=== PATIENT | female | born 1950 | race Caucasian/White ===

== ENCOUNTER → 2017-08-08 | Outpatient (CLI) | payer OTHER ==
[~2017-08-08] MED LIST: ACET-1138 PO; ASPEC81 PO; ATOR-24 PO; CLB200 PO; FURO-85 PO; LISI-725 PO; METO1TAB71 PO; MULT-506 PO; RXC5 PO; SNK PO
[2017-08-08 11:47] LABS: HEMATOCRIT 43.8 % (37-47); MEAN CELL VOLUME 87.6 fL (80-100); MEAN CORPUSCULAR HGB CONC 33.1 g/dl (32-36); MEAN PLATELET VOLUME 10.5 fL (7.4-10.4); PLATELET COUNT 217 K/uL (130-400)
[2017-08-08 12:00] LABS: ALT/SGPT 26 U/L (12-78); AST/SGOT 23 U/L (15-37); BLOOD UREA NITROGEN 17 mg/dl (7-18); BUN/CREATININE RATIO 19.2 (10-20); CALCIUM 9.4 mg/dl (8.5-10.1); CARBON DIOXIDE 27 mmol/L (21-32); CHLORIDE 106 mmol/L (98-107); CREATININE 0.86 mg/dl (0.60-1.20); GLUCOSE 130 mg/dl (70-99); POTASSIUM 4.1 mmol/L (3.5-5.1); SODIUM 139 mmol/L (136-145)
== END | disposition home or self-care (01) ==
LOC: C.LABPBG 08:39
PROVIDERS: ATTEND Internal Medicine Cardiovascular Disease
DX: I50.22 Chronic systolic (congestive) heart failure (principal); I34.0 Nonrheumatic mitral (valve) insufficiency; I47.2 Ventricular tachycardia; I42.0 Dilated cardiomyopathy; E78.00 Pure hypercholesterolemia, unspecified; I86.8 Varicose veins of other specified sites

== ENCOUNTER → 2018-03-09 | Outpatient (CLI) | payer OTHER ==
[~2018-03-09] MED LIST changes: -ASPEC81 PO; +ASPI-320 PO; -METO1TAB71 PO; +METO200T32 PO
[2018-03-09 13:04] LABS: HEMATOCRIT 43.3 % (37-47); HEMOGLOBIN 14.8 g/dL (12.0-16.0); MEAN CELL VOLUME 85.4 fL (80-100); MEAN CORPUSCULAR HEMOGLOBIN 29.2 pg (25-34); MEAN CORPUSCULAR HGB CONC 34.2 g/dl (32-36); MEAN PLATELET VOLUME 10.2 fL (7.4-10.4); PLATELET COUNT 197 K/uL (130-400); RED CELL DISTRIBUTION WIDTH CV 13.9 % (11.5-14.5); RED CELL DISTRIBUTION WIDTH SD 43.1 fL (36.4-46.3); WHITE BLOOD COUNT 5.79 K/uL (4.8-10.8)
[2018-03-09 15:41] LABS: ALT/SGPT 59 U/L (12-78); AST/SGOT 71 U/L (15-37); BLOOD UREA NITROGEN 20 mg/dl (7-18); CALCIUM 8.7 mg/dl (8.5-10.1); CARBON DIOXIDE 24 mmol/L (21-32); CHOLESTEROL 111 mg/dl (0-200); CREATININE 0.99 mg/dl (0.60-1.20); GLUCOSE 117 mg/dl (70-99); POTASSIUM 4.1 mmol/L (3.5-5.1); SODIUM 137 mmol/L (136-145)
[2018-03-09 15:45] LABS: LDL CHOLESTEROL CALCULATED 47 mg/dl
== END | disposition home or self-care (01) ==
LOC: C.LABPBG 10:51
PROVIDERS: ATTEND Internal Medicine Cardiovascular Disease
DX: I50.22 Chronic systolic (congestive) heart failure (principal); I34.0 Nonrheumatic mitral (valve) insufficiency; I42.0 Dilated cardiomyopathy; E78.00 Pure hypercholesterolemia, unspecified; R60.9 Edema, unspecified; I83.90 Asymptomatic varicose veins of unspecified lower extremity; R00.2 Palpitations

== ENCOUNTER 2022-04-21 19:56 | Observation (INO) ==
[2022-04-21] MEDS ORDERED: ACETAMINOPHEN 500 MG TAB PO STA (20:07)
--- NOTE | 2022-04-21 20:07 | Emergency Department Note ---
Impression & Plan Acute knee pain ADMIT ED Provider Note HPI: The patient is a 71-year-old female who presents emergency department with a chief complaint of right knee pain. Patient states that the pain developed acutely when she was walking in her basement shortly prior to arrival. Patient states that she did mow the lawn today and for the past day has been having some pain in her right calf area. Patient denies any injury although she states she "might have" twisted her knee awkwardly. On arrival here to the ED she has limited range of motion at the right knee secondary to pain, no significant swelling, she does have a palpable dorsalis pedis pulse on arrival with range of motion and sensation intact distally in the right foot. Patient states that the pain was acute in nature, her daughter was at the house shortly after the injury and called EMS for the patient to be transported to the ED. There is no asymmetrical swelling of the right lower extremity in comparison to the left. Patient is otherwise in no acute distress on arrival. ROS: -MSK: Right knee pain *10 point review systems was conducted and is otherwise negative unless stated above *Outpatient medications and allergy history reviewed PE: General: Alert, NAD HEENT: Normocephalic, atraumatic Eyes: Extraocular eye movement is intact, no scleral erythema Pulmonary: Clear to auscultation bilaterally, no wheezing Cardio: Regular rate and rhythm GI: Abdomen is soft, nontender : No suprapubic tenderness MSK: No evidence of trauma or malformation of the extremities, no edema, limited range of motion at the right knee secondary to pain, palpable dorsalis pedis pulses appreciated in the right lower extremity Skin: No evidence of rash Neuro: Alert, no focal deficits Psychiatric: Cooperative Medical Decision Making: Patient presented to the emergency department after she experienced acute pain in her right knee when she was ambulating in her basement earlier today, she denies any blunt trauma, denies any fall to the ground, patient believes she may have twisted her knee awkwardly causing the acute pain. She also mention that she had some pain in her right calf area throughout the day prior to experiencing this injury to her right knee. On arrival here to the ED the patient does not have any discoloration of the right lower extremity, no asymmetrical swelling, she does complain of acute pain in the right knee area. X-ray imaging was obtained that does not show any obvious fracture or dislocation per my interpretation, ultrasound imaging of the right lower extremity does not show any evidence of DVT. On my reassessment the patient states she is still having some pain despite receiving Tylenol here in the ED, she states it is mostly when she attempts to move the knee or if she ambulates, she is unable to bear any weight on the leg, she states that she lives with her who is unable to help her with anything at home in regards to her ambulation and activities of daily living as he recently had back surgery. Family at the bedside is concerned that the patient should not be discharged home because of this. Screening lab work was obtained that shows a slightly elevated creatinine of 1.34, patient has had some elevations in this range previously but her baseline seems to be around 1.0, she was ordered IV fluids for this. Urinalysis does not show any obvious evidence of infection as it does appear contaminated, patient does not have any dysuria, will send for culture. Given the patient's ambulatory dysfunction and acute right knee pain, I do of concern for soft tissue injury, she is not safe for discharge home according to family and therefore [facility] hospitalist service was consulted for admission for ambulatory dysfunction and acute right knee pain/injury. Diagnosis: 1. Right knee pain, acute 2. Ambulatory dysfunction 3. 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) Chronic bronchitis Chronic diastolic congestive heart failure Hypercholesterolemia Hypertension Hypothyroidism Left bundle-branch block Mitral regurgitation Osteopenia Paroxysmal ventricular tachycardia (11/2012) Type 2 diabetes mellitus Surgical History History of cardiac cath History of tubal ligation Status post left knee replacement (08/06/16) Family History Mother Cardiac disorder Cerebral aneurysm Hypertension Father Cardiac disorder Hypertension Brother Cardiac disorder Cerebral aneurysm Diabetes Hypertension Grandmother (Maternal) Type 2 diabetes mellitus Denies family history of Ovarian cancer Prostate cancer Myocardial infarction Breast cancer Colorectal cancer Social History Smoking Status: Never smoker Second Hand Exposure: No; Hx Alcohol Use: No Hx Substance Use: No Preferred Language: Nepali Communication Ability: Effective Visual Impairment: No Limitations Hearing Ability: Normal Silk Screen Painter Required: No Beliefs That Will Affect Care: None marital status: Current Living Situation: Spouse current occupational status: retired 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 [employer] Feels Safe at Home: Yes Childhood Exposure to Second-Hand Smoke: Yes caffeine: No Dental Care, Regularly: No Physical Activity Frequency: Daily Physical Activity Frequency Comment: walking Seatbelt Use: always Sunscreen Use: Yes Allergies Allergies Allergy/AdvReac Type Severity Reaction Status Date / Time No Known Allergies Allergy Unverified 04/21/22 20:04 Home Meds Home Medications Medication Instructions Recorded Confirmed calcium carbonate 600 mg-vitamin 1 tab PO BID 05/11/19 04/21/22 D3 10 mcg (400 unit) tablet (Calcium 600 + D(3)) aspirin 81 mg tablet,delayed 81 mg PO DAILY 04/21/22 04/21/22 release Previous Rx's Medication Instructions Recorded multivitamin (Daily Multi-Vitamin) 1 tab PO DAILY #30 tab 05/11/19 metoprolol succinate 200 mg 200 mg PO DAILY #90 tab 04/25/21 tablet,extended release 24 hr atorvastatin 40 mg tablet 40 mg PO DAILY #90 tab 05/22/21 blood sugar diagnostic (ShoppinPalTouch #100 ea 08/16/21 Verio test strips) lancets 33 gauge (OneTouch Delica #100 ea 08/16/21 Lancets) furosemide 20 mg tablet 20 mg PO DAILY #90 tab 01/24/22 levothyroxine 50 mcg tablet 25 mcg PO DAILY #90 tab 01/28/22 lisinopril 20 mg tablet 20 mg PO DAILY #90 tab 01/28/22 metformin 500 mg tablet 1,000 mg PO BID #180 tab 04/03/22 Results & Data (ED) Vital Signs Vital Signs - 24 hr 04/21/22 20:01 04/21/22 22:05 04/21/22 22:30 Pulse Rate 75 68 Pulse Rate [Left Radial] 64 Respiratory Rate 18 18 18 Respiratory Effort / Characteristics Non-Labored Respiratory Depth Normal Normal Blood Pressure 132/59 L Blood Pressure [Left Arm] 134/69 Blood Pressure Mean 83 Blood Pressure Mean [Left Arm] 90 Pulse Oximetry 96 96 99 Oxygen Delivery Method Room Air Room Air Sepsis Recent Fever Within 48 Hours No Sepsis New/Unexplained Change in Mental Status No Sepsis Action Taken by Nursing No Action Required 04/21/22 23:48 Pulse Rate Pulse Rate [Left Radial] 63 Respiratory Rate 16 Respiratory Effort / Characteristics Respiratory Depth Blood Pressure Blood Pressure [Left Arm] Blood Pressure Mean Blood Pressure Mean [Left Arm] Pulse Oximetry 98 Oxygen Delivery Method Room Air Sepsis Recent Fever Within 48 Hours Sepsis New/Unexplained Change in Mental Status Sepsis Action Taken by Nursing Laboratory Data Result diagrams: 04/21/22 22:45 04/21/22 22:45 Lab Results 04/21/22 04/21/22 04/21/22 Range/Units 22:37 22:45 22:45 WBC 8.82 (4.8-10.8) K/uL RBC 4.76 (4.2-5.4) M/uL Hgb 13.6 (12.0-16.0) g/dL Hct 40.9 (37-47) % MCV 85.9 (80-100) fL MCH 28.6 (25-34) pg MCHC 33.3 (32-36) g/dL RDW Std Deviation 44.4 (36.4-46.3) fL RDW Coeff of Hans 14.1 (11.5-14.5) % Plt Count 276 (130-400) K/uL MPV 9.9 (7.4-10.4) fL Immature Gran % (Auto) 0.2 % Neut % (Auto) 51.6 % Lymph % (Auto) 30.5 % Pitt % (Auto) 13.5 % Eos % (Auto) 3.9 % Baso % (Auto) 0.3 % Neut # (Auto) 4.55 (1.4-6.5) K/uL Lymph # (Auto) 2.69 (1.2-3.4) K/uL Pitt # (Auto) 1.19 H (0.11-0.59) K/uL Eos # (Auto) 0.34 (0-0.5) K/uL Baso # (Auto) 0.03 (0-0.2) K/uL Immature Gran # (Auto) 0.02 (0.00-0.02) K/uL Sodium 140 (136-145) mmol/L Potassium 4.2 (3.5-5.1) mmol/L Chloride 105 (98-107) mmol/L Carbon Dioxide 27 (21-32) mmol/L Anion Gap 8 (3-11) BUN 39 H (6-23) mg/dl Creatinine 1.34 H (0.6-1.2) mg/dl Est Cr Clr Drug Dosing 34.5 ml/min Est GFR ( Amer) 46.1 ml/min Est GFR (Non-Af Amer) 39.8 ml/min BUN/Creatinine Ratio 29.1 H (10-20) Glucose 120 H (70-99(Fasting)) mg/dl Calcium 9.6 (8.5-10.1) mg/dl Total Bilirubin 0.3 (0.2-1.0) mg/dl AST 22 (13-39) U/L ALT 15 (7-52) U/L Alkaline Phosphatase 79 (34-104) U/L Total Protein 7.3 (6.0-8.3) gm/dl Albumin 4.0 (3.4-5.0) gm/dl Globulin 3.3 (2.5-4.0) gm/dl Albumin/Globulin Ratio 1.2 (0.9-2) Urine Color Urine Appearance (Clear) Urine pH (4.5-7.5) Ur Specific [place] (1.000-1.030) Urine Protein (Negative) Urine Glucose (UA) (Negative) Urine Ketones (Negative) Urine Blood (Negative) Urine Nitrite (Negative) Urine Bilirubin (Negative) Urine Urobilinogen (Negative) Ur Leukocyte Esterase (Negative) Urine WBC (Auto) (0-5) /hpf Urine RBC (Auto) (0-4) /hpf U Hyaline Cast (Auto) (0-5) /lpf U Epithel Cells (Auto) (0-5) /lpf Urine Bacteria (Auto) (Negative) SARS-CoV-2, RNA, NAAT NEGATIVE (NEGATIVE) 04/21/22 Range/Units 22:56 WBC (4.8-10.8) K/uL RBC (4.2-5.4) M/uL Hgb (12.0-16.0) g/dL Hct (37-47) % MCV (80-100) fL MCH (25-34) pg MCHC (32-36) g/dL RDW Std Deviation (36.4-46.3) fL RDW Coeff of Hans (11.5-14.5) % Plt Count (130-400) K/uL MPV (7.4-10.4) fL Immature Gran % (Auto) % Neut % (Auto) % Lymph % (Auto) % Pitt % (Auto) % Eos % (Auto) % Baso % (Auto) % Neut # (Auto) (1.4-6.5) K/uL Lymph # (Auto) (1.2-3.4) K/uL Pitt # (Auto) (0.11-0.59) K/uL Eos # (Auto) (0-0.5) K/uL Baso # (Auto) (0-0.2) K/uL Immature Gran # (Auto) (0.00-0.02) K/uL Sodium (136-145) mmol/L Potassium (3.5-5.1) mmol/L Chloride (98-107) mmol/L Carbon Dioxide (21-32) mmol/L Anion Gap (3-11) BUN (6-23) mg/dl Creatinine (0.6-1.2) mg/dl Est Cr Clr Drug Dosing ml/min Est GFR ( Amer) ml/min Est GFR (Non-Af Amer) ml/min BUN/Creatinine Ratio (10-20) Glucose (70-99(Fasting)) mg/dl Calcium (8.5-10.1) mg/dl Total Bilirubin (0.2-1.0) mg/dl AST (13-39) U/L ALT (7-52) U/L Alkaline Phosphatase (34-104) U/L Total Protein (6.0-8.3) gm/dl Albumin (3.4-5.0) gm/dl Globulin (2.5-4.0) gm/dl Albumin/Globulin Ratio (0.9-2) Urine Color Yellow Urine Appearance Clear (Clear) Urine pH 5.0 (4.5-7.5) Ur Specific [place] 1.021 (1.000-1.030) Urine Protein Negative (Negative) Urine Glucose (UA) Negative (Negative) Urine Ketones Trace H (Negative) Urine Blood Negative (Negative) Urine Nitrite Negative (Negative) Urine Bilirubin Negative (Negative) Urine Urobilinogen Negative (Negative) Ur Leukocyte Esterase 2+ H (Negative) Urine WBC (Auto) 10-30 H (0-5) /hpf Urine RBC (Auto) 0-4 (0-4) /hpf U Hyaline Cast (Auto) 10-30 H (0-5) /lpf U Epithel Cells (Auto) >30 H (0-5) /lpf Urine Bacteria (Auto) 1+ H (Negative) SARS-CoV-2, RNA, NAAT (NEGATIVE) Administered Medications Discontinued Medications Acetaminophen (Acetaminophen 500 Mg Tab) 1,000 mg PO NOW STA Stop: 04/21/22 20:08 Last Admin: 04/21/22 20:21 Dose: 1,000 mg Documented by: [id number] Discharge Plan Visit Data Chief Complaint: Knee Injury/Pain Stated Complaint: Knee pain ED Provider: Asim Duarte Discharge Problem: Acute knee pain Forms Stand Alone Forms: [facility] [employer] Prescriptions Prescriptions: No Action metoprolol succinate 200 mg tablet extended release 24 hr 200 mg PO DAILY Qty: 90 RF: 3 atorvastatin 40 mg tablet 40 mg PO DAILY Qty: 90 RF: 3 (DME) OneTouch Verio test strips Strip See Dose Instructions .ROUTE .MEDSUPPLY Qty: 100 RF: 5 (DME) lancets [OneTouch Delica Lancets] 33 gauge misc See Dose Instructions .ROUTE .MEDSUPPLY Qty: 100 RF: 5 furosemide 20 mg tablet 20 mg PO DAILY Qty: 90 RF: 3 levothyroxine 50 mcg tablet 25 mcg PO DAILY Qty: 90 RF: 1 lisinopril 20 mg tablet 20 mg PO DAILY Qty: 90 RF: 3 metformin 500 mg tablet 1,000 mg PO BID Qty: 180 RF: 1 multivitamin [Daily Multi-Vitamin] tablet 1 tab PO DAILY Qty: 30 RF: 5 calcium carbonate-vitamin D3 [Calcium 600 + D(3)] 600 mg(1,500mg) -400 unit tablet 1 tab PO BID RF: 0 aspirin [Aspirin Low-Strength] 81 mg Tablet,Delayed Release (Dr/Ec) 81 mg PO DAILY RF: 0 Referrals Referrals: Oxana Marks DO [Primary Care Provider] - Discharge Problem: Acute knee pain Qualifiers: Laterality: right Qualified Code(s): M25.561 - Pain in right knee
[2022-04-21 22:52] LABS: Basophils # (auto) 0.03 K/uL (0-0.2); Basophils % (auto) 0.3 %; Eosinophils # (auto) 0.34 K/uL (0-0.5); Eosinophils % (auto) 3.9 %; Hematocrit (blood only) 40.9 % (37-47); Hemoglobin 13.6 g/dL (12.0-16.0); Immature Granulocytes # (auto) 0.02 K/uL (0.00-0.02); Immature Granulocytes % (auto) 0.2 %; Lymphocytes # (auto) 2.69 K/uL (1.2-3.4); Lymphocytes % (auto) 30.5 %; Mean Corpuscular Hemoglobin 28.6 pg (25-34); Mean Corpuscular Hgb Conc 33.3 g/dL (32-36); Mean Corpuscular Volume 85.9 fL (80-100); Mean Platelet Volume 9.9 fL (7.4-10.4); Monocytes # (auto) 1.19 K/uL (0.11-0.59); Monocytes % (auto) 13.5 %; Neutrophils # (auto) 4.55 K/uL (1.4-6.5); Neutrophils % (auto) 51.6 %; Platelet Count 276 K/uL (130-400); RDW Coefficient of Variation 14.1 % (11.5-14.5); RDW Standard Deviation 44.4 fL (36.4-46.3); Red Blood Count 4.76 M/uL (4.2-5.4); White Blood Count 8.82 K/uL (4.8-10.8)
[2022-04-21 23:09] LABS: Appearance Urine Clear (Clear); Bacteria Urine Automated 1+ (Negative); Bilirubin Urine Negative (Negative); Blood Urine Negative (Negative); Color Urine Yellow; Epithelial Cell Urine Auto >30 /lpf (0-5); Glucose Urine UA Negative (Negative); Ketones Urine Trace (Negative); Leukocyte Esterase Urine 2+ (Negative); Nitrite Urine Negative (Negative); Protein Urine Negative (Negative); RBC Urine Automated 0-4 /hpf (0-4); Specific Gravity Urine 1.021 (1.000-1.030); Urobilinogen Urine Negative (Negative)
[2022-04-21 23:12] LABS: Albumin Globulin Ratio 1.2 (0.9-2); BUN Creatinine Ratio 29.1 (10-20); Bilirubin,Total 0.3 mg/dl (0.2-1.0); Calcium 9.6 mg/dl (8.5-10.1); Creatinine Clr Calc Pharmacy 34.5 ml/min; Est GFR (African American) 46.1 ml/min; Est GFR (Non-African American) 39.8 ml/min; Globulin 3.3 gm/dl (2.5-4.0); Potassium 4.2 mmol/L (3.5-5.1); Total Protein 7.3 gm/dl (6.0-8.3)
[2022-04-22] MEDS ORDERED: SODIUM CHLORIDE 0.9% 1000ML 1,000 ML IV ONE (00:01)
--- NOTE | 2022-04-22 00:25 | History & Physical Report ---
Date of Service April 22, 2022 Assessment & Plan (1) Acute knee pain: Plan: Cara Silva is a 71-year-old female with past medical history of hypertension, hypothyroidism, hyperlipidemia, chronic diastolic CHF, dilated cardiomyopathy, DM 2, osteopenia who presented due to 1 day of right knee pain, with inability to bear weight or ambulate. Right knee injury with ambulatory dysfunction Likely knee sprain when climbing steps, physical exam less consistent with any full-thickness ligamentous tears or meniscal injury however, unable to fully rule out without MRI Would treat conservatively with RICE and NSAIDs when CYNDI proves would recommend ibuprofen 600 mg 3 times daily or naproxen for 440 mg to 500 mg twice daily At this time, will continue with acetaminophen as needed PT/OT consults likely will require outpatient PT and if no better in 4 to 6 weeks, would benefit from MRI imaging at that point Admit to [facility] for observation CYNDI BUN 39, creatinine 1.34 BUN to creatinine ratio consistent with dehydration Given 1 L fluid bolus in ED Will continue gentle IV fluids Repeat metabolic panel in a.m. Hold lisinopril, furosemide, metformin Avoid nephrotoxins As above, will likely benefit from ibuprofen or naproxen for knee pain after CYNDI resolved Hypertension/hyperlipidemia/dilated cardiomyopathy/diastolic CHF No current signs of CHF exacerbation, last echo in December 2020 with normal EF Monitor fluid status in the setting of IV fluids Hold lisinopril and furosemide due to CYNDI Continue metoprolol succinate, atorvastatin, aspirin Hypothyroidism Continue levothyroxine DM2 Hold metformin SSI while admitted DVT prophylaxis: Heparin subcu Diet: Heart healthy, DM 2 [facility]: Full (2) Hypothyroidism: (3) Chronic diastolic congestive heart failure: (4) Hypercholesterolemia: (5) Hypertension: (6) Type 2 diabetes mellitus: (7) Cardiomyopathy, dilated: History of Present Illness Primary Care Provider: Oxana Marks DO Cara Silva is a 71-year-old female with past medical history of hypertension, hypothyroidism, hyperlipidemia, chronic diastolic CHF, dilated cardiomyopathy, DM 2, osteopenia who presented due to 1 day of right knee pain. Patient states that earlier today she was climbing up the stairs from her basement and she felt her right knee give out. She states she did not fall down the steps, was able to hold herself up and slowly sit down on the steps. Since then she has felt like she cannot move her knee very much and is unable to bear weight on the right leg. She does state that she has had some pain in her calf for about 3 days, preceding this right knee pain. She has not noticed any bruising or swelling of said calf. At this time did not notice swelling of the right knee either. She denies fever, chills, nausea, vomiting, headache, dizziness, cough, shortness of breath, chest pain, palpitations, abdominal pain, rashes, known sick contacts. In the emergency department, patient received 1 L NSS bolus. Given acetaminophen 1000 mg x 1. X-ray of the right knee showing no acute fracture or dislocation per my interpretation. She also had venous Doppler of right lower extremity with no evidence of DVT. Labs significant for creatinine of 1.34 and BUN of 39. Otherwise unremarkable lab work. Had UA, which seemed contaminated, and patient denies urinary symptoms. At the time of my evaluation, patient was laying in bed comfortably but stating that she was still unable to ambulate or bear weight on her right knee. She did say she had a similar episode of this in September 2021, which she self treated at home. She used crutches, knee sleeve, ice, as needed analgesics. Eventually, pain subsided and she was able to ambulate normally. However, she feels this time the pain is worse. Allergies Allergy/AdvReac Type Severity Reaction Status Date / Time No Known Allergies Allergy Unverified 04/21/22 20:04 Home Medications Medication Instructions Recorded Confirmed Type calcium carbonate 600 mg-vitamin 1 tab PO BID 05/11/19 04/21/22 History D3 10 mcg (400 unit) tablet (Calcium 600 + D(3)) multivitamin (Daily Multi-Vitamin) 1 tab PO DAILY #30 tab 05/11/19 04/21/22 Rx metoprolol succinate 200 mg 200 mg PO DAILY #90 tab 04/25/21 04/21/22 Rx tablet,extended release 24 hr atorvastatin 40 mg tablet 40 mg PO DAILY #90 tab 05/22/21 04/21/22 Rx blood sugar diagnostic (Lotour.comTouch #100 ea 08/16/21 04/21/22 Rx Verio test strips) lancets 33 gauge (OneTouch Delica #100 ea 08/16/21 04/21/22 Rx Lancets) furosemide 20 mg tablet 20 mg PO DAILY #90 tab 01/24/22 04/21/22 Rx levothyroxine 50 mcg tablet 25 mcg PO DAILY #90 tab 01/28/22 04/21/22 Rx lisinopril 20 mg tablet 20 mg PO DAILY #90 tab 01/28/22 04/21/22 Rx metformin 500 mg tablet 1,000 mg PO BID #180 tab 04/03/22 04/21/22 Rx aspirin 81 mg tablet,delayed 81 mg PO DAILY 04/21/22 04/21/22 History release Past Med/Surg History Medical History Cardiomyopathy, dilated (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) Chronic bronchitis Chronic diastolic congestive heart failure Hypercholesterolemia Hypertension Hypothyroidism Left bundle-branch block Mitral regurgitation Osteopenia Paroxysmal ventricular tachycardia (11/2012) Type 2 diabetes mellitus Surgical History History of cardiac cath History of tubal ligation Status post left knee replacement (08/06/16) Family History Mother Cardiac disorder Cerebral aneurysm Hypertension Father Cardiac disorder Hypertension Brother Cardiac disorder Cerebral aneurysm Diabetes Hypertension Grandmother (Maternal) Type 2 diabetes mellitus Denies family history of Ovarian cancer Prostate cancer Myocardial infarction Breast cancer Colorectal cancer Social History Smoking Status: Never smoker Second Hand Exposure: No; Do You Dip or Chew Tobacco: No; Tobacco Cessation Education Requested by Patient: No Hx Alcohol Use: No Hx Substance Use: No Preferred Language: Croatian Communication Ability: Effective Visual Impairment: No Limitations Hearing Ability: Normal Blockman Required: No Beliefs That Will Affect Care: None marital status: Current Living Situation: Spouse current occupational status: retired 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 NAD. HEENT: PERRL, EOMI. Moist mucous membranes. NECK: No JVD. No lymphadenopathy. CHEST/LUNGS: CTAB A/P. No crackles, wheezes, rales, rhonchi. HEART: RRR. No m/g/r. No carotid bruits. ABDOMEN: NT/ND, soft. BS+ x4 EXTREMITIES: No cyanosis, no clubbing, no edema. Right knee with TTP posteriorly and mild TTP along joint line bilaterally. Valgus and varus stress testing negative. Anterior/posterior drawer negative. Citlali's test negative. SKIN: Warm and dry. No rashes or lesions. PSYCHIATRIC: Euthymic affect, no SI, no pressured speech, no hallucinations NEUROLOGIC: No FND. CN II-XII grossly intact. Results & Data Results & Data ([facility]) Vital Signs (Past 12 Hours) Vital Signs Pulse Pulse Resp BP BP Pulse Ox 04/21/22 23:48 63 16 98 04/21/22 22:30 68 18 99 04/21/22 22:05 64 18 134/69 96 04/21/22 20:01 75 18 132/59 L 96 Supervising Physician Co-Signing Physician Notes Attending addendum: I have physically seen this patient, have supervised the medical residents activities, and agree with the H&P unless as otherwise noted. Assessment and Plan: Right knee pain/ambulatory dysfunction- Normal-appearing x-ray RICE Acetaminophen 6 extra grams p.o. every 6 hours as needed mild pain or fever If pain is persistent and/or worse in a.m., would consider ordering MRI at that time discussed soft tissue injury, and consult orthopedic surgery at that time PT/OT consult when pain controlled Acute kidney injury- Creatinine 1.34 upon admission, with base 1.02 Status post 1 L fluid in the ED Continue gentle fluid IV fluid rehydration Hold lisinopril and furosemide Serial BMP and magnesium levels Remaining orders and notations as noted Resident Activity Tracking Resident Involvement: Resident Care Provided Care Provided: [facility] Medicine (1) Acute knee pain Laterality: right Qualified Code(s): M25.561 - Pain in right knee
[2022-04-22] MEDS ORDERED: POLYETHYLENE (MIRALAX) 17 GM PACK PO PRN (02:28)
[2022-04-22] MEDS ORDERED: DC ALL PREVIOUSLY ORDERED DIABETES MEDS ONE (02:28)
[2022-04-22] MEDS ORDERED: CARBOHYDRATES FOR HYPOGLYCEMIA PO PRN (02:28)
[2022-04-22] MEDS ORDERED: GLUCOSE 10 TABS/TUBE PO PRN (02:28)
[2022-04-22] MEDS ORDERED: GLUCAGON FOR INJ 1 MG VIAL SQ PRN (02:28)
[2022-04-22] MEDS ORDERED: ONDANSETRON INJ 2 MG/ML 2 ML VIAL IV PRN (02:28)
[2022-04-22] MEDS ORDERED: GLUCOSE 40% GEL 15 GM TUBE PO PRN (02:28)
[2022-04-22] MEDS ORDERED: DEXTROSE 50% 50 ML SYRINGE IV PRN (02:28)
[2022-04-22] MEDS ORDERED: SODIUM CHLORIDE 0.9% 1000ML 1,000 ML IV SCH (02:28)
[2022-04-22] MEDS ORDERED: ACETAMINOPHEN 325 MG TAB PO PRN (02:28)
--- NOTE | 2022-04-22 03:25 | Billing Data ---
Date of Service April 22, 2022 Coding Level of Care Code INT OBSERVATION CARE 70M LVL 3
[2022-04-22] MEDS ORDERED: LEVOTHYROXINE SODIUM 25 MCG TABLET PO SCH (06:30)
[2022-04-22 06:43] LABS: BUN Creatinine Ratio 29.2 (10-20); Calcium 8.7 mg/dl (8.5-10.1); Creatinine Clr Calc Pharmacy 42.9 ml/min; Est GFR (African American) 61.2 ml/min; Est GFR (Non-African American) 52.8 ml/min
--- NOTE | 2022-04-22 07:04 | Ultrasound Report ---
RIGHT LOWER EXTREMITY VENOUS DOPPLER CLINICAL HISTORY: R calf pain eval for DVT COMPARISON STUDY: Bilateral lower extremity venous Doppler ultrasound December 08, 2012. TECHNIQUE: Sonography of the deep venous system of the right lower extremity was performed. Compress ion and augmentation were evaluated. FINDINGS: The right common femoral, superficial femoral and popliteal veins were compressible. Augme ntation was normal. Flow was shown within the deep calf vessels. IMPRESSION: No evidence of deep venous thrombus within the right lower extremity. ACT 112: Negative or not required by law. Electronically signed by: Ra Xie M.D. 04/22/2022 7:03 AM
--- NOTE | 2022-04-22 07:26 | XRay Report ---
XR knee RT 3V CLINICAL HISTORY: R knee pain today when walking TECHNIQUE: 3 views of the right knee were obtained. Comparison: None available at the time of this dictation. FINDINGS: There is no evidence of an acute fracture. Degenerative changes are seen in the knee joint. No joint effusion is seen. No soft tissue abnormality is seen. IMPRESSION: No evidence of acute osseous injury. ACT 112: Negative or not required by law. Electronically signed by: Gurinder Butler M.D. 04/22/2022 7:25 AM
[2022-04-22 07:43] LABS: Estimated Average Glucose 140 mg/dl; Hemoglobin A1C 6.5 % (4.5-5.6)
[2022-04-22] MEDS: MULTIVITAMIN TAB PO SCH (08:45)
[2022-04-22] MEDS: HEPARIN SOD 5,000 UNIT/0.5 ML VIAL SQ SCH ×2 (08:45→20:57)
[2022-04-22] MEDS: ATORVASTATIN 40 MG TAB PO SCH (08:45)
[2022-04-22] MEDS: ASPIRIN 81 MG ECTAB PO SCH (08:45)
[2022-04-22] MEDS: CALCIUM 600MG + VIT D 400 IU TAB PO SCH ×2 (08:45→20:58)
[2022-04-22] MEDS: METOPROLOL SUCC 50MG EXT REL TAB PO SCH (08:45)
[2022-04-22] MEDS: INSULIN ASPART PER UNIT SC SCH ×4 (08:52→20:51)
[2022-04-22 09:40] LABS: Thyroid Stimulating Hormone 5.039 uIu/ml (0.300-4.500)
[2022-04-22 10:11] LABS: T4 Free Thyroxine 0.94 ng/dl (0.61-1.60)
--- NOTE | 2022-04-22 11:37 | History & Physical Bridge Note ---
Date of Service April 22, 2022 History & Physical Bridge Note I have examined the patient, reviewed the History & Physical and in the interval since the performance of the History & Physical I have noted the following changes of clinical significance: no changes noted Patient evaluated this afternoon. Not having any pain at rest, only with standing. Prior L knee replacement with Dr Marquez. States was walking and her right knee gave out and she crawled back to get herself up as her is recently recovering from back surgery himself. Discussed consulting orthopedics but holding off on further imaging for now. Will consult PT/OT to see if any need for rehab -- she states she did home therapy after her prior knee replacement. Never diagnosed/treated for Lyme/no tick bites but will check/treat if needed. Agreeable to try topical Voltaren for now but discussed could try NSAIDs now that Cr back to baseline. No fever/chills, chest pain, shortness of breath, abdominal pain, nausea, vomiting or dysuria at this time and notes she has urinated 3 times so far this morning.
[2022-04-22] MEDS: DICLOFENAC SOD 1% GEL 100 GM TUBE EXT SCH ×2 (12:24→20:58)
[2022-04-22 12:47] LABS: Lyme Ab IgM w/WB Rflx Negative (Negative)
[2022-04-22 13:52] LABS: Lyme Ab IgG w/WB Rflx Positive (Negative)
[2022-04-23 06:19] LABS: BUN Creatinine Ratio 23.7 (10-20); Calcium 9.5 mg/dl (8.5-10.1); Creatinine Clr Calc Pharmacy 48.9 ml/min; Est GFR (African American) 71.7 ml/min; Est GFR (Non-African American) 61.8 ml/min; Potassium 4.7 mmol/L (3.5-5.1)
[2022-04-23] MEDS ORDERED: LEVOTHYROXINE SODIUM 25 MCG TABLET PO SCH (06:30)
[2022-04-23] MEDS: ASPIRIN 81 MG ECTAB PO SCH (08:26)
[2022-04-23] MEDS: MULTIVITAMIN TAB PO SCH (08:26)
[2022-04-23] MEDS: ATORVASTATIN 40 MG TAB PO SCH (08:26)
[2022-04-23] MEDS: METOPROLOL SUCC 50MG EXT REL TAB PO SCH (08:26)
[2022-04-23] MEDS: CALCIUM 600MG + VIT D 400 IU TAB PO SCH (08:27)
[2022-04-23] MEDS: DICLOFENAC SOD 1% GEL 100 GM TUBE EXT SCH (08:27)
[2022-04-23] MEDS: HEPARIN SOD 5,000 UNIT/0.5 ML VIAL SQ SCH (08:27)
[2022-04-23] MEDS: INSULIN ASPART PER UNIT SC SCH (08:36)
--- NOTE | 2022-04-23 08:56 | Orthopedic Consultation ---
Date of Consultation April 23, 2022 Assessment & Plan (1) Acute knee pain: Currently the patient states that she is feeling much better. She feels that the Voltaren gel has helped a lot. She was still having some mild discomfort on weightbearing yesterday but was able to ambulate 150 feet. He feels that she is doing better overall. Most likely this is a soft tissue injury to the calf and surrounding tissues. No obvious ligamentous injury. Bony contusion is also a possibility if patient is having deeper pain in the knee. We discussed use of heat and/or ice to the proximal calf. She can continue using the Voltaren gel. We also discussed a short-term use of ibuprofen 600 mg p.o. 3 times daily for the next 2 to 3 days. We discussed that if she continues to have this discomfort or if it worsens, that she can follow- up with Dr. Danny Marquez in the office for further evaluation. WBAT. Case discussed with Dr. Alves. Xrays reviewed. Continue with the above plan. History of Present Illness Reason for Consultation: Right knee pain Attending Physician: Reynaldo Angulo MD History of Present Illness 71-year-old female with past medical history of hypertension, hypothyroidism, hyperlipidemia, chronic diastolic CHF, dilated cardiomyopathy, DM 2, osteopenia who presented due to 1 day of right knee pain. Patient states that prior to her admission she was going up her steps carrying some laundry. At 1 point she felt her right knee give out and she was able to catch herself. She did not fall. She does state that she bumped her knee against the step. She was unable to ambulate to the top of the steps so she turned herself around and went up the steps on her bottom. She was able to get assistance from her to help her get up. She was having difficulty putting weight on the right knee. She denies any increased swelling or bruising since the time of the incident. She states that she was continuing to have difficulty weightbearing. She came into the emergency room and was seen by the staff. X-rays were taken. No overt fractures or dislocation of the knee were noted. Doppler ultrasound was negative for DVT. Patient was still having difficulty ambulating and she was admitted for further care. We have been asked to see her for her right knee pain. Allergies Allergy/AdvReac Type Severity Reaction Status Date / Time No Known Allergies Allergy Unverified 04/21/22 20:04 Home Medications Medication Instructions Recorded Confirmed Type calcium carbonate 600 mg-vitamin 1 tab PO BID 05/11/19 04/21/22 History D3 10 mcg (400 unit) tablet (Calcium 600 + D(3)) multivitamin (Daily Multi-Vitamin) 1 tab PO DAILY #30 tab 05/11/19 04/21/22 Rx metoprolol succinate 200 mg 200 mg PO DAILY #90 tab 04/25/21 04/21/22 Rx tablet,extended release 24 hr atorvastatin 40 mg tablet 40 mg PO DAILY #90 tab 05/22/21 04/21/22 [facility]16/21 04/21/22 Rx Verio test strips) lancets 33 gauge ([employer] [facility] [employer] #100 ea 08/16/21 04/21/22 Rx Lancets) furosemide 20 mg tablet 20 mg PO DAILY #90 tab 01/24/22 04/21/22 Rx levothyroxine 50 mcg tablet 25 mcg PO DAILY #90 tab 01/28/22 04/21/22 Rx lisinopril 20 mg tablet 20 mg PO DAILY #90 tab 01/28/22 04/21/22 Rx metformin 500 mg tablet 1,000 mg PO BID #180 tab 04/03/22 04/21/22 Rx aspirin 81 mg tablet,delayed 81 mg PO DAILY 04/21/22 04/21/22 History release diclofenac sodium 1 % topical gel 2 g EXT BID #100 g 04/22/22 Rx (Voltaren Arthritis Pain) levothyroxine 25 mcg tablet 37.5 mcg PO DAILYBB 30 Days #45 tab 04/22/22 Rx (Synthroid) Patient History Medical History Cardiomyopathy, dilated (11/2012) Chronic bronchitis Chronic diastolic congestive heart failure Hypercholesterolemia Hypertension Hypothyroidism Left bundle-branch block Mitral regurgitation Osteopenia Paroxysmal ventricular tachycardia (11/2012) Type 2 diabetes mellitus Surgical History History of cardiac cath History of tubal ligation Status post left knee replacement (08/06/16) Family History Mother Cardiac disorder Cerebral aneurysm Hypertension Father Cardiac disorder Hypertension Brother Cardiac disorder Cerebral aneurysm Diabetes Hypertension Grandmother (Maternal) Type 2 diabetes mellitus Denies family history of Ovarian cancer Prostate cancer Myocardial infarction Breast cancer Colorectal cancer Social History Smoking Status: Never smoker Second Hand Exposure: No; Do You Dip or Chew Tobacco: No; Tobacco Cessation Education Requested by Patient: No Hx Alcohol Use: No Hx Substance Use: No Preferred Language: Italian Communication Ability: Effective Visual Impairment: No Limitations Hearing Ability: Normal Adjustment Examiner Required: No Beliefs That Will Affect Care: None marital status: Current Living Situation: Spouse current occupational status: retired current occupation: [employer] AD[employer] AT [employer] Other Information That Helps Us Care for You: No Feels Safe at Home: Yes Safety Concerns: Feels Safe At This Time Childhood Exposure to Second-Hand Smoke: Yes caffeine: No Dental Care, Regularly: No Physical Activity Frequency: Daily Physical Activity Frequency Comment: walking Seatbelt Use: always Sunscreen Use: Yes Assistive Devices: Cane and Walker Assistive Devices Comment: has devices but does not use at baseline Physical Exam Physical Exam: On examination, the patient is a 71-year-old white female who appears her stated age, alert and oriented x3, no acute distress, pleasant and cooperative. Patient was sitting at the bedside with her knee flexed to approximately 90 degrees. She then was able to swing herself around to lie down in bed for the examination. She had no overt pain during this time. During our discussion, the patient is able to do a straight leg raise on her own without discomfort. She states that most of the pain that she describes was at the top of the calf and down the lateral calf. He did not feel that the pain was deep in the knee. She has no overt swelling noted of the knee at this time. I cannot appreciate any effusion. She has a slight old bruise noted on the proximal tibia from where she hit her leg against the step. She has no overt swelling of the lower extremity below the knee. I am able to palpate her calf without much in the way of discomfort. Palpation of the knee itself is nontender. She has no overt pain over the medial/ lateral collaterals. Nontender on palpation of the patella. No pain on palpation posteriorly. Patient is able to take her right knee through active range of motion. She has range of motion from 0 to 120 degrees without much in the way of crepitus. She does have good strength. Axial loading does not cause pain in the knee at this time. Medial and lateral collateral ligaments appear stable. Citlali's exam is stable. External rotation of the lower extremity does not cause any discomfort. Internal rotation of the lower extremity does cause some slight discomfort in the lateral calf. There is no gross motor or sensory loss seen at this time. Results & Data ([facility]) Vital Signs (Past 12 Hours) Vital Signs Temp Pulse Resp BP Pulse Ox 04/23/22 07:34 36.5 C 65 16 142/65 H 96 04/22/22 22:24 36.6 C 73 16 120/65 96 (1) Acute knee pain Laterality: right Qualified Code(s): M25.561 - Pain in right knee
--- NOTE | 2022-04-23 09:48 | Discharge Summary ---
Date of Service April 23, 2022 Admission HPI Per Admitting Provider Cara Silva is a 71-year-old female with past medical history of hypertension, hypothyroidism, hyperlipidemia, chronic diastolic CHF, dilated cardiomyopathy, DM 2, osteopenia who presented due to 1 day of right knee pain. Patient states that earlier today she was climbing up the stairs from her basement and she felt her right knee give out. She states she did not fall down the steps, was able to hold herself up and slowly sit down on the steps. Since then she has felt like she cannot move her knee very much and is unable to bear weight on the right leg. She does state that she has had some pain in her calf for about 3 days, preceding this right knee pain. She has not noticed any bruising or swelling of said calf. At this time did not notice swelling of the right knee either. She denies fever, chills, nausea, vomiting, headache, dizziness, cough, shortness of breath, chest pain, palpitations, abdominal pain, rashes, known sick contacts. In the emergency department, patient received 1 L NSS bolus. Given acetaminophen 1000 mg x 1. X-ray of the right knee showing no acute fracture or dislocation per my interpretation. She also had venous Doppler of right lower extremity with no evidence of DVT. Labs significant for creatinine of 1.34 and BUN of 39. Otherwise unremarkable lab work. Had UA, which seemed contaminated, and patient denies urinary symptoms. At the time of my evaluation, patient was laying in bed comfortably but stating that she was still unable to ambulate or bear weight on her right knee. She did say she had a similar episode of this in September 2021, which she self treated at home. She used crutches, knee sleeve, ice, as needed analgesics. Eventually, pain subsided and she was able to ambulate normally. However, she feels this time the pain is worse. Admission Exam Per Admitting Provider GENERAL: A&Ox3. NAD. HEENT: PERRL, EOMI. Moist mucous membranes. NECK: No JVD. No lymphadenopathy. CHEST/LUNGS: CTAB A/P. No crackles, wheezes, rales, rhonchi. HEART: RRR. No m/g/r. No carotid bruits. ABDOMEN: NT/ND, soft. BS+ x4 EXTREMITIES: No cyanosis, no clubbing, no edema. Right knee with TTP posteriorly and mild TTP along joint line bilaterally. Valgus and varus stress testing negative. Anterior/posterior drawer negative. Citlali's test negative. SKIN: Warm and dry. No rashes or lesions. PSYCHIATRIC: Euthymic affect, no SI, no pressured speech, no hallucinations NEUROLOGIC: No FND. CN II-XII grossly intact. Principal Diagnosis R knee pain Discharge Exam General: WN/WD female sitting up in bed,NAD HEENT: eyes anicteric, pupils equal and reactive, trachea midline, mmm Resp: CTAB, no w/c/r, on room air CV: RRR, no m/r/g GI:+BS, soft, NT/ND : no de la o MSK/Neuro: CN intact grossly, no focal deficit, calves non-tender, ROM intact, pulses palpable, no ronn step off. no effusion, no tenderness to palpation. strength full bilaterally, some discomfort lateral calf without loss of sensation Discharge Data Allergies Allergy/AdvReac Type Severity Reaction Status Date / Time No Known Allergies Allergy Unverified 04/21/22 20:04 Consultations 04/21/22 23:55 ED Decision to Admit Stat 04/22/22 10:55 Consult Orthopedic Surgery Routine Ordered Studies Knee X-Ray 04/21/22 20:04 XR knee RT 3V CLINICAL HISTORY: R knee pain today when walking TECHNIQUE: 3 views of the right knee were obtained. Comparison: None available at the time of this dictation. FINDINGS: There is no evidence of an acute fracture. Degenerative changes are seen in the knee joint. No joint effusion is seen. No soft tissue abnormality is seen. IMPRESSION: No evidence of acute osseous injury. ACT 112: Negative or not required by law. Electronically signed by: Gurinder Butler M.D. 04/22/2022 7:25 AM Venous Doppler Study 04/21/22 20:04 RIGHT LOWER EXTREMITY VENOUS DOPPLER CLINICAL HISTORY: R calf pain eval for DVT COMPARISON STUDY: Bilateral lower extremity venous Doppler ultrasound December 08, 2012. TECHNIQUE: Sonography of the deep venous system of the right lower extremity was performed. Compression and augmentation were evaluated. FINDINGS: The right common femoral, superficial femoral and popliteal veins were compressible. Augmentation was normal. Flow was shown within the deep calf vessels. IMPRESSION: No evidence of deep venous thrombus within the right lower extremi ty. ACT 112: Negative or not required by law. Electronically signed by: Ra Xie M.D. 04/22/2022 7:03 AM Hospital Course (1) Acute knee pain: Cara Silva is a 71-year-old female with past medical history of hypertension, hypothyroidism, hyperlipidemia, chronic diastolic CHF, dilated cardiomyopathy, DM 2, osteopenia who presented due to 1 day of right knee pain, with inability to bear weight or ambulate. Right knee injury with ambulatory dysfunction Likely knee sprain when climbing steps and recently garage sale hunting/admitted to twisting/pain following getting out of the truck physical exam less consistent with any full-thickness ligamentous tears or meniscal injury however, unable to fully rule out without MRI ICE/elevation Ortho-- seen Dr Marquez in past. Given improvement with voltaren, set with such at home and if continued issues over next couple weeks can f/u Dr Marquez/MRI if needed but cleared with PT for return home. Can consider outpatient therapy with UOC Cr back to baseline with IVF/holding diuretics. Hold NSAIDs but instructed could take sparingly and would use tylenol 3x/day for next couple days as well Acute Kidney Injury Diuretic held, IVF provided. Normalized on repeat HTN BP stble off lisinopril/lasix, continued on metoprolol, atorvastatin/asa for CAD Hypothyroidism Recent adjustment with PCP from 50 to 25mcg and TSH elevated. Discussed with patient and sent on 37.5mcg daily and rec f/u PCP for outpatient repeat/adjustment if needed DM BSGs controlled while inpatient/SSI Stephen resolved, continue home medications at discharge DVT Proph Heparin Sq (2) Hypothyroidism: (3) Chronic diastolic congestive heart failure: (4) Hypercholesterolemia: (5) Hypertension: (6) Type 2 diabetes mellitus: (7) Cardiomyopathy, dilated: Total Time Total Time Spent Total Time Spent (In Minutes): 35 Discharge Plan Discharge Items Patient Disposition: Home - Self-Care Reason For Visit: RIGHT KNEE PAIN, AMBULATORY DYSFUNCTION Discharge Diagnosis: RIGHT KNEE PAIN Goals: You have been hospitalized for an acute medical problem. During your stay at [facility], we have made an effort to correct the problem that brought you to the hospital while keeping you as comfortable as possible. Medications were used to bring your condition under control and your discharge instructions will include directions for any medications you should take after leaving the hospital. Please make sure you see your Primary Care Provider as part of your follow up plan. Activity: As commented below Non-emergency contact: Primary Care Provider and Surgeon Call non-emergency contact if: you have any medication questions, your symptoms worsen and your pain is not controlled Follow-up/Referrals: Oxana Marks DO [Primary Care Provider] - 05/06/22 9:20 am Linus Marquez MD [Outside Practitioners] - 05/14/22 10:20 am () Diet: Carb Consistent or DM2 and Heart Healthy Addtl Attending Provider Instructions: You have been hospitalized for right knee pain. Imaging did not show any evidence for fracture. Orthopedics was consulted and no evidence for fracture, could be sprain. You can continue topical Voltaren to the knee/affected area four times daily and continue to elevate/ice for comfort. Your kidney numbers returned to normal and you can use occasional oral ibuprofen but use with cautious. Would recommend taking Tylenol 2-3 times daily for next couple of days for baseline control. You can take ibuprofen but would use sparingly. If you have continued issues, please follow up with Dr Marquez in the next 3-4 weeks to consider additional injury, however this appears to be more strain in nature. You have been evaluated by therapy while inpatient and no need for inpatient rehab and you can continue therapy as an outpatient. If continued issues over next couple of weeks with conservative measures, they may consider MRI in the future. Of note, we did discuss your Synthroid dosing and TSH level. It was again elevated, so we have increased you to the 37.5mcg dose daily (taken on empty stomach 30 minutes prior to other medications) and your PCP can repeat levels in the next 4-6 weeks to ensure within normal range/no further adjustments required. Please follow up with your PCP in the next 7-10 days to monitor your status after discharge. Please return to the ER with any increased pain, fever, chest pain, shortness of breath, or for any other symptoms concerning for you. Take care! Pending Studies at Discharge: No Stand-Alone Forms: My [facility] [employer] Medications and DC Order Prescriptions: New diclofenac sodium [Voltaren Arthritis Pain] 1 % Gel 2 g EXT BID Qty: 100 RF: 0 levothyroxine [Synthroid] 25 mcg Tablet 37.5 mcg PO DAILYBB 30 Days Qty: 45 RF: 0 Continued metoprolol succinate 200 mg tablet extended release 24 hr 200 mg PO DAILY Qty: 90 RF: 3 atorvastatin 40 mg tablet 40 mg PO DAILY Qty: 90 RF: 3 (DME) OneTouch Verio test strips Strip See Dose Instructions .ROUTE .MEDSUPPLY Qty: 100 RF: 5 (DME) lancets [OneTouch Delica Lancets] 33 gauge misc See Dose Instructions .ROUTE .MEDSUPPLY Qty: 100 RF: 5 furosemide 20 mg tablet 20 mg PO DAILY Qty: 90 RF: 3 lisinopril 20 mg tablet 20 mg PO DAILY Qty: 90 RF: 3 metformin 500 mg tablet 1,000 mg PO BID Qty: 180 RF: 1 multivitamin [Daily Multi-Vitamin] tablet 1 tab PO DAILY Qty: 30 RF: 5 calcium carbonate-vitamin D3 [Calcium 600 + D(3)] 600 mg(1,500mg) -400 unit tablet 1 tab PO BID RF: 0 aspirin 81 mg Tablet,Delayed Release (Dr/Ec) 81 mg PO DAILY RF: 0 Discontinued levothyroxine 50 mcg tablet 25 mcg PO DAILY Qty: 90 RF: 1 Discharge Orders: Discharge Order (Routine); Ordered 04/23/22 Ordered By: Dona Retana/Other Patient Handouts: RICE Admission Data Admit Date/Time: 04/22/22 00:22 Attending Provider: Reynaldo Angulo Admit Provider: Jose Godinez Primary Care Provider: Oxana Marks Other Providers: Reynaldo Angulo ; Jayy Rangel Other Interventions: Discharge Summary Assessment (RN) Last Done: 04/23/22 10:17 Supervising Physician Co-Signing Physician Notes I supervised Dona Camarillo PA-C on this discharge. I interviewed and examined the patient independently of her. The plan is as written in the note except for any following changes/exceptions: None Doing well today. Knee feels really well. Has been up and moving around. Continue Voltaren gel. Will f/u with Dr. Marquez as o/p if needed. Patient and in agreement. Coding Level of Care Code 06428 OBS Care - Discharge Diagnoses Acute knee pain M25.561 Laterality: right Hypothyroidism E03.9 Chronic diastolic congestive heart failure I50.32 Hypercholesterolemia E78.00 Hypertension I10 Type 2 diabetes mellitus E11.9 Cardiomyopathy, dilated I42.0
== END 2022-04-23 11:20 | disposition home or self-care (01) ==
LOC: ED 19:56 → 3E 19:56 → SUATTDRO 04-22 00:22 → 3E 04-22 01:53